=== PATIENT | female | born 2000 | race American Indian/Alaskan Native ===

== ENCOUNTER 2022-04-01 02:12 | Emergency (ER) | payer OTHER ==
[2022-04-01] MEDS ORDERED: SODIUM CHLORIDE 0.9% 1000 ML 1,000 ML IV ONE (03:08)
--- NOTE | 2022-04-01 03:43 | Emergency Department Report ---
HPI - General PUI?: No - HPI HPI: 21-year-old female with self-reported history of chronic alcohol abuse (last drink was 3 days ago (pt states ""I drink pretty heavy when I do drink"), marijuana abuse, presents for evaluation of several days of persistent nausea vomiting and lower abdominal pain. Triage note reviewed and appreciated but the patient states "I never had a history of PID. That is what the fire department said it probably is but I never was told anything about that and I never told anyone I had PID in the past." She reports generalized lower abdominal cramping which is constant and radiates throughout her entire abdomen. She reports multiple episodes of watery nonbloody nonbilious vomiting. No melena hematochezia or hematemesis. Last bowel movement was 1 day ago and she states it was normal. She denies any other illicit drug use. No sick contacts no travel history. No chest pain shortness of breath difficulty breathing or palpitations. Pain currently 6 out of 10. Per charge nurse the patient received normal saline and Zofran prior to arrival via EMS personnel. <MIKAYLA MONCADA - Last Filed: 04/01/22 05:36> <ELENA LEE - Last Filed: 04/01/22 11:48> - General Chief Complaint: Abdominal Pain Time Seen by Provider: 04/01/22 02:41 ED Past Medical Hx - Past Medical History Previous Medical History?: Yes Hx Psychiatric Treatment: Yes (anxiety, ETOH abuse) - Surgical History Past Surgical History?: No - Family History Family history: no significant - Social History Smoking Status: Current Every Day Smoker Substance Use Type: Alcohol, Marijuana <MIKAYLA MONCADA - Last Filed: 04/01/22 05:36> <ELENA LEE - Last Filed: 04/01/22 11:48> - Medications Home Medications: Home Medications Medication Instructions Recorded Confirmed Last Taken Type Ketorolac [Toradol] 10 mg PO Q6H PRN 5 Days #20 tab NS 04/01/22 Unknown Rx Ondansetron (Nf) [Zofran TAB] 8 mg PO Q8HR PRN 5 Days #15 tablet 04/01/22 Unknown Rx NS ED Review of Systems ROS: Stated complaint: ABDOMINAL PAIN/VOMITING Other details as noted in HPI Comment: All other systems reviewed and negative <MIKAYLA MONCADA - Last Filed: 04/01/22 05:36> ROS: Stated complaint: ABDOMINAL PAIN/VOMITING Other details as noted in HPI <ELENA LEE - Last Filed: 04/01/22 11:48> Physical Exam - Physical Exam Vital Signs: Vital Signs 04/01/22 04/01/22 04/01/22 02:16 02:51 02:52 Temperature 98.9 F Pulse Rate 18 L Respiratory 18 Rate Blood Pressure 134/90 O2 Sat by Pulse 100 98 98 Oximetry 04/01/22 04/01/22 03:00 03:12 Temperature Pulse Rate 60 Respiratory Rate Blood Pressure 120/77 O2 Sat by Pulse 99 Oximetry General: Gen: pt is well appearing, no acute distress, patient asleep on stretcher upon this provider's arrival, she is easily arousable and is comfortable appearing during conversation HEENT: Normocephalic atraumatic pupils equally round and reactive to light extraocular muscles intact sclera anicteric Neck: Full range of motion, no midline spinal tenderness palpation, no JVD, no carotid bruits, no nuchal rigidity CVS: S1-S2 regular rate and rhythm with no gallops rubs or murmurs, chest wall nontender Pulmonary: Clear to auscultation bilaterally, no wheezes rales or rhonchi Abdomen: Soft nondistended nontender no guarding or rebound tenderness, no palpable deformities or step-offs, normal active bowel sounds, no hepatosplenomegaly, no pulsatile masses : Deferred Extremities: No cyanosis no clubbing no edema, intact distal peripheral pulses, Integumentary: Skin normal, no petechia no purpura no abscess no lacerations no evidence of trauma no evidence of infection Neuro: Patient is awake alert and oriented to person place time situation, mentating well, cranial nerves II through XII intact, no focal neurodeficits, sensation grossly tact Psych: Calm cooperative, mood affect normal <MACOMUNIRA MoreDerik CLIFFORD - Last Filed: 04/01/22 05:36> - Physical Exam Vital Signs: Vital Signs 04/01/22 04/01/22 04/01/22 02:16 02:51 02:52 Temperature 98.9 F Pulse Rate 53 L Respiratory 18 Rate Blood Pressure 134/90 Blood Pressure [Left] O2 Sat by Pulse 100 98 98 Oximetry 04/01/22 04/01/22 04/01/22 03:00 03:12 03:16 Temperature Pulse Rate 60 Respiratory Rate Blood Pressure 120/77 131/81 Blood Pressure [Left] O2 Sat by Pulse 99 99 Oximetry 04/01/22 04/01/22 04/01/22 03:30 03:46 04:00 Temperature Pulse Rate Respiratory Rate Blood Pressure 131/81 133/88 133/88 Blood Pressure [Left] O2 Sat by Pulse 100 100 99 Oximetry 04/01/22 04/01/22 04/01/22 04:16 04:30 04:46 Temperature Pulse Rate Respiratory Rate Blood Pressure 124/78 133/88 123/87 Blood Pressure [Left] O2 Sat by Pulse 100 99 98 Oximetry 04/01/22 04/01/22 04/01/22 05:00 05:16 05:30 Temperature Pulse Rate Respiratory Rate Blood Pressure 123/87 119/82 119/82 Blood Pressure [Left] O2 Sat by Pulse 99 97 96 Oximetry 04/01/22 04/01/22 04/01/22 05:46 06:00 08:04 Temperature 98.8 F Pulse Rate 102 H Respiratory 18 Rate Blood Pressure 114/87 114/87 Blood Pressure 130/90 [Left] O2 Sat by Pulse 100 100 97 Oximetry <ELENA LEE - Last Filed: 04/01/22 11:48> ED Course Vital Signs 04/01/22 04/01/22 04/01/22 02:16 02:51 02:52 Temperature 98.9 F Pulse Rate 18 L Respiratory 18 Rate Blood Pressure 134/90 O2 Sat by Pulse 100 98 98 Oximetry 04/01/22 04/01/22 03:00 03:12 Temperature Pulse Rate 60 Respiratory Rate Blood Pressure 120/77 O2 Sat by Pulse 99 Oximetry - Reevaluation(s) Reevaluation #1: 04/01/22 03:42 Patient reassessed. She is comfortable and well-appearing, she is moving all extremities, she denies any active vomiting and is not witnessed to be vomiting while here <MIKAYLA MONCADA - Last Filed: 04/01/22 05:36> Vital Signs 04/01/22 04/01/22 04/01/22 02:16 02:51 02:52 Temperature 98.9 F Pulse Rate 53 L Respiratory 18 Rate Blood Pressure 134/90 Blood Pressure [Left] O2 Sat by Pulse 100 98 98 Oximetry 04/01/22 04/01/22 04/01/22 03:00 03:12 03:16 Temperature Pulse Rate 60 Respiratory Rate Blood Pressure 120/77 131/81 Blood Pressure [Left] O2 Sat by Pulse 99 99 Oximetry 04/01/22 04/01/22 04/01/22 03:30 03:46 04:00 Temperature Pulse Rate Respiratory Rate Blood Pressure 131/81 133/88 133/88 Blood Pressure [Left] O2 Sat by Pulse 100 100 99 Oximetry 04/01/22 04/01/22 04/01/22 04:16 04:30 04:46 Temperature Pulse Rate Respiratory Rate Blood Pressure 124/78 133/88 123/87 Blood Pressure [Left] O2 Sat by Pulse 100 99 98 Oximetry 04/01/22 04/01/22 04/01/22 05:00 05:16 05:30 Temperature Pulse Rate Respiratory Rate Blood Pressure 123/87 119/82 119/82 Blood Pressure [Left] O2 Sat by Pulse 99 97 96 Oximetry 04/01/22 04/01/22 04/01/22 05:46 06:00 08:04 Temperature 98.8 F Pulse Rate 102 H Respiratory 18 Rate Blood Pressure 114/87 114/87 Blood Pressure 130/90 [Left] O2 Sat by Pulse 100 100 97 Oximetry - Reevaluation(s) Reevaluation #2: 04/01/22 11:41 Pt signed to me with abdominal pain while waiting for the result of US to rule out PID --Pt reported be dry heaving which is resulted as right minimal ovarian cyst--pt will be discharge home on pain medication. 04/01/22 11:47 <ELENA LEE - Last Filed: 04/01/22 11:48> ED Medical Decision Making - Lab Data Result diagrams: 04/01/22 03:30 04/01/22 03:30 - Radiology Data Radiology results: pending, report reviewed - Medical Decision Making 21-year-old female with a history of marijuana and chronic EtOH abuse, presents with lower abdominal pain. Vital signs stable. Labs reviewed. hCG negative. Urine drug screen positive for marijuana. Urinalysis negative for UTI. Patient had an episode of dry heaving here and she was given Zofran and subsequently Reglan. CT scan findings results reviewed. I did an extensive conversation with the patient. She is sexually active with females only and currently has 1 partner with whom she has been with for prolonged period of time. She states she has never been sexually active with any men and has not had any STDs, neither has she had a pelvic exam. She declines to undergo bimanual pelvic exam here. She will need a dedicated transvaginal ultrasound as recommended by the reading radiologist. Due to change in provider shift time at 6 AM, patient signed out to Dr. Timmy Lee for follow up of ultrasound report and to provide the pt's final disposition. <MIKAYLA MONCADA - Last Filed: 04/01/22 05:36> - Lab Data Result diagrams: 04/01/22 03:30 04/01/22 03:30 <ELENA LEE - Last Filed: 04/01/22 11:48> Critical Care Time: No Critical care attestation.: If time is entered above; I have spent that time in minutes in the direct care of this critically ill patient, excluding procedure time. <MIKAYLA MONCADA - Last Filed: 04/01/22 05:36> Critical care attestation.: If time is entered above; I have spent that time in minutes in the direct care o f this critically ill patient, excluding procedure time. <ELENA LEE - Last Filed: 04/01/22 11:48> ED Disposition Is pt being admited?: No Does the pt Need Aspirin: No <MIKAYLA MONCADA - Last Filed: 04/01/22 05:36> Time of Disposition: 11:47 <ELENA LEE - Last Filed: 04/01/22 11:48> Clinical Impression: Ovarian cyst Qualifiers: Laterality: right Qualified Code(s): N83.201 - Unspecified ovarian cyst, right side Abdominal pain Qualifiers: Abdominal location: unspecified location Qualified Code(s): R10.9 - Unspecified abdominal pain Disposition: 01 HOME / SELF CARE / HOMELESS Condition: Stable Instructions: Abdominal Pain (ED), Abdominal Pain, Adult, [id number], Ovarian Cyst, [id number] Additional Instructions: Increase your daily fluid to help your hydration Take your pain medication and nausea medicine as prescribed to continue to help your symptoms Call and schedule follow-up with your primary doctor in the next 3 to 5 days for progress Please do not hesitate to call or return to emergency if your symptoms worsen Prescriptions: Ketorolac [Toradol] 10 mg PO Q6H PRN 5 Days #20 tab NS PRN Reason: Pain Ondansetron (Nf) [Zofran TAB] 8 mg PO Q8HR PRN 5 Days #15 tablet NS PRN Reason: Nausea
[2022-04-01 03:49] LABS: Basophils # (Auto) 0.1 K/mm3 (0.0-0.1); Basophils % (Auto) 0.7 % (0.0-1.8); Hematocrit 39.8 % (30.3-42.9); Hemoglobin 13.4 gm/dl (10.1-14.3); Lymphocytes # (Auto) 0.8 K/mm3 (1.2-5.4); Lymphocytes % (Auto) 6.6 % (13.4-35.0); Mean Corpuscular HGB Conc 34 % (30-34); Mean Corpuscular Volume 87 fl (79-97); Monocytes # (Auto) 0.9 K/mm3 (0.0-0.8); Monocytes % (Auto) 7.7 % (0.0-7.3); Platelet Count 321 K/mm3 (140-440); Red Blood Count 4.56 M/mm3 (3.65-5.03); Red Cell Distribution Width 13.9 % (13.2-15.2)
[2022-04-01 04:07] LABS: Alanine Aminotransferase 26 units/L (7-56); Albumin 4.7 g/dL (3.9-5); BUN/Creatinine Ratio 18; Blood Urea Nitrogen 16 mg/dL (7-17); Calcium 9.3 mg/dL (8.4-10.2); Hemolysis Index 6
[2022-04-01] MEDS ORDERED: KETOROLAC 30 MG/1 ML INJ IV ONE (04:35)
[2022-04-01 05:21] LABS: Amphetamine Screen,Urine Negative; Benzodiazepines Screen,Urine Negative; Cocaine Screen,Urine Negative; Methadone Screen,Urine Negative; Opiate Screen,Urine Negative
[2022-04-01] MEDS ORDERED: METOCLOPRAMIDE 10 MG/2 ML INJ IV ONE (05:22)
--- NOTE | 2022-04-01 05:23 | Cat Scan Report ---
CT ABDOMEN AND PELVIS WITH IV CONTRAST INDICATION: b/l lower abdominal pain, vomiting. COMPARISON: None available. TECHNIQUE: Axial CT images were obtained through the abdomen and pelvis after 100 mL Omnipaque [address] scans at this location are performed using CT dose reduction for ALARA by means of automated e xposure control. FINDINGS -- ABDOMEN: Lung Bases: No acute abnormality. Liver: Periportal edema. Gallbladder: Normal. Bile Ducts: Normal. Pancreas: Normal. Spleen: Normal. Adrenals: Normal. Right Kidney and Proximal Ureter: Normal. Left Kidney and Proximal Ureter: Normal. Stomach and Bowel: Normal. Lymph Nodes: No significant adenopathy. Aorta: No significant abnormality. IVC: Normal. Additional Findings: None. FINDINGS -- PELVIS: Urinary Bladder and Distal Ureters: Normal. Reproductive Organs: Moderate endometrial fluid. There are cysts within both ovaries. The cyst appear ed to be approximately 1 cm in diameter. There is a peripherally enhancing 1.1 cm cyst within the rig ht ovary. There is surrounding stranding throughout much of the pelvic peritoneum.. Appendix: Only partially visualized but the visualized segments appear unremarkable. Bowel: No acute abnormality. Free Fluid: Small free pelvic fluid. Lymph Nodes: No significant adenopathy. Additional Findings: None. Skeletal System: No acute abnormality. IMPRESSION: 1. Extensive stranding identified involving the pelvis could be secondary to peritonitis. There are s mall free pelvic fluid. 2. 1 cm peripherally enhancing cyst like lesion within the right ovary is ultimately nonspecific but could represent a hemorrhagic cyst. Pelvic ultrasound is suggested for further evaluation. Signer Name: Shaun Mcdaniel MD Signed: 04/01/2022 5:19 AM Workstation Name: [id number]
[2022-04-01 05:49] LABS: Cannabinoid Screen,Urine Positive
--- NOTE | 2022-04-01 07:44 | Ultrasound Report ---
Pelvic ultrasound transvaginal INDICATION: Bilateral pelvic pain FINDINGS: The uterus measures 7 x 3 x 4 cm. The endometrial thickness is 8 mm. Both ovaries demonstra te normal Doppler flow but contain multiple follicles. The largest cystlike lesion is located on the right and measures about 1.1 cm in diameter and appears slightly complex. No significant free fluid i s visualized. IMPRESSION: There is visualized flow involving both ovaries. Multiple follicles scattered throughout both ovaries. There is a minimally complex 1.1 cm cyst within the right ovary. Signer Name: Shaun Mcdaniel MD Signed: 04/01/2022 7:39 AM Workstation Name: [id number]
[2022-04-01] MEDS ORDERED: ONDANSETRON 4 MG/2 ML INJ IV ONE (10:52)
[2022-04-01 11:57] VITALS: BP 126/84
== END 2022-04-01 11:56 | disposition home or self-care (01) ==
LOC: ED 02:12
DX: N83.209 Unspecified ovarian cyst, unspecified side (principal); R10.30 Lower abdominal pain, unspecified; F41.9 Anxiety disorder, unspecified; F17.200 Nicotine dependence, unspecified, uncomplicated; Z79.899 Other long term (current) drug therapy
CPT/HCPCS: 36415; 74177; 76830; 80053; 80307; 83690; 84703; 85025; 96361; 96374; 96375; 99284; J1885; J2405; J2765; Q9967; 80320; G0480